=== PATIENT | male | born 1970 | race Two or more races ===

== ENCOUNTER 2025-03-15 10:28 | Emergency (ER) | payer MEDICAID, OTHER, SELFPAY ==
[2025-03-15 10:38] VITALS: BP 118/66; PULSE 68; RESP 18; TEMP 36.8; O2SAT 100; BMI 23.5
--- NOTE | 2025-03-15 12:50 | ED_ITS ---
HPI - General Adult General Chief complaint: Wound/Laceration Stated complaint: laceration Time Seen by Provider: 03/15/25 13:12 Source: patient and smoking tobacco packer hand (all interactions with this patient were facilitated with an [facility] tearoom hostess) Mode of arrival: ambulatory Limitations: language barrier (all interactions with this patient were facilitated with an [facility] tearoom hostess) History of Present Illness ED Provider: Riddhi Deleon PA-C HPI narrative: Patient is a 54 year old assigned male at with no reported medical history presenting to the emergency department today with right wrist and bicep injury. Patient states that he was using scissors when his hand slipped and cut his right wrist and slipped and abrased his right upper arm. Patient denies any dizziness, lightheadedness, abdominal pain, nausea, vomiting, fever, chills, blurry vision, double vision, loss of vision, chest pain, difficulty breathing, shortness of breath, back pain, night sweats, pain with urination, increased urinary frequency, increased urinary urgency, blood in his urine or stool, syncope or a near syncopal episode, bowel incontinence, bladder incontinence, or any other complaints at this time. Patient states that he does not know when his last tetanus shot was. Relieving factors: none Exacerbating factors: none Associated symptoms: denies other symptoms Treatments prior to arrival: none Related Data Previous Rx's ?Medication ?Instructions ?Recorded amoxicillin 875 mg-potassium 1 tab PO BID 5 days #10 tabs 03/15/25 clavulanate 125 mg tablet naproxen 500 mg tablet 500 mg PO BID 7 days #14 tabs 03/15/25 Allergies Allergy/AdvReac Type Severity Reaction Status Date / Time No Known Allergies Allergy Verified 03/15/25 10:45 Review of Systems 2 Constitutional: Constitutional: Reports no additional constitutional complaints, Denies chills, Denies fever(s) and Denies night sweats Eyes: Eyes: Reports no additional eye complaints, Denies blurry vision, Denies change in vision, Denies diplopia, Denies eye discharge, Denies loss of vision and Denies eye pain ENT: Denies dizziness Cardiovascular: Cardiovascular: Reports no additional cardiovascular complaints, Denies chest pain, Denies lightheadedness, Denies Loss of Consciousness and Denies dyspnea Respiratory: Respiratory: Reports no additional respiratory complaints and Denies dyspnea Gastrointestinal: Gastrointestinal: Reports no additional gastrointestinal complaints, Denies abdominal pain, Denies melena, Denies hematochezia, Denies change in bowel habits and Denies change in stool character Genitourinary: Genitourinary: Reports no additional male genitourinary complaints, Denies hematuria, Denies oliguria, Denies difficulty urinating, Denies dysuria, Denies urinary frequency, Denies urinary hesitancy, Denies urinary incontinence and Denies urinary urgency Musculoskeletal: Musculoskeletal: Reports no additional musculoskeletal complaints, Denies numbness and Denies tingling Comments: right wrist and right upper arm injury Neurologic: Denies dizziness, Denies loss of vision, Denies numbness and Denies tingling Psychiatric: Psychiatric: Reports no additional psychiatric complaints Endocrine: Endocrine: Reports no additional endocrine complaints Hematologic/Lymphatic: Hematologic/Lymphatic: Reports no additional hematologic/lymphatic complaints Allergic/Immunologic: Allergic/Immunologic: Reports no additional allergic/immunologic complaints PMFSH Past Medical History Attestation statement: The following information was validated with the patient. Source: old records reviewed and nursing notes reviewed Social History Social History Advance Directives: No Advance Directives Information Provided: Yes Physical Exam ED Vital Signs: Vital Signs - 24 hr 03/15/25 10:38 03/15/25 14:04 Temperature 98.3 F 98.3 F Pulse Rate 68 68 Respiratory Rate 18 18 Blood Pressure 118/66 118/66 Pulse Oximetry 100 100 Oxygen Delivery Method Room Air Room Air BMI result Body Mass Index 23.5 Const General: cooperative, no acute distress, alert and awake Nutritional Appearance: well nourished Orientation/consciousness: patient oriented x3 HENMT Head: Yes normal to inspection and Yes atraumatic Ears: hearing grossly normal bilaterally and external ears normal General nose exam: Normal external nose present, no nasal discharge noted and no epistaxis Face and sinus: Yes normal facial exam, No abrasion and No laceration Mouth: Normal oral and palatal mucosa present, no drooling and no muffled voice Eyes General: appearance normal, both eyes and all related structures Periorbital: periorbital findings normal Eyelids: Yes eyelids normal Conjunctivae: conjunctivae normal Pupils: Equal, round and reactive pupils present EOM: EOMs intact bilaterally Neck Neck: Yes normal visual inspection, Yes full ROM and Yes no lymphadenopathy Resp Effort & Inspection: normal respiratory effort and able to speak in complete sentences Neuro General: patient oriented x3, moves all extremities and CN's II-XI intact bilaterally Cranial nerves: Yes Equal, round and reactive pupils present Cognition (Neuro): normal cognition Extrem Other: General: Yes full ROM and Yes capillary refill normal Psych Appearance: grossly normal Mental Status: mental status grossly normal Affect: normal affect Attitude: cooperative Thought process: Normal thought process present Thought content: Normal thought content present Insight: Good insight present (Psych) Course Course Course Narrative: RME performed by Riddhi Deleon PA-C. Patient is a 54 year old assigned male at presenting to the emergency department with a right wrist and upper arm injury. Patient states that he was using scissors when they slipped and cut his right wrist and upper arm. Patient states that he does not know when his last tetanus shot was. Detailed physical exam and review of systems are deferred to the senior clinician. Patient placed back in the waiting room pending room availability. Medications Administered Discontinued Medications Generic Name Dose Route Start Last Admin Trade Name Freq PRN Reason Stop Dose Admin Diphtheria/Tetanus/Acell Pertussis 0.5 ml 03/15/25 12:50 03/15/25 13:08 Diphth,Pertus(Acell),Tet Adult 0.5 Ml Syringe IM 03/15/25 12:51 0.5 ml .ONCE ONE Administration Lidocaine HCl 10 ml 03/15/25 12:50 03/15/25 13:07 Lidocaine Hcl 1 % Mpf 5 Ml Vial SUBCUT 03/15/25 12:51 10 ml ONCE ONE Administration Procedures Laceration Laceration 1: Site: upper extremity Side (If applicable): right Size (cm): 3 Description: linear Depth: simple, single layer Local Anesthetic: lidocaine 1% Amount of anesthesia used (mL): 10 Pre-repair: wound explored, irrigated extensively and deep structures intact Skin layer closed with: other (Prolene) Size (cm): 6-0 Number of sutures: 5 Technique: simple, interrupted Medical Decision Making Medical Decision Making MDM Narrative: Patient is a 54 year old assigned male at with no reported medical history presenting to the emergency department today with right wrist and bicep injury. Patient's physical exam was as noted in the physical exam portion of this note. I explained my physical exam findings to the patient. I answered all questions asked by the patient. Patient's laceration was repaired, per procedure note, without incident. Patient's right hand / wrist / upper extremity PMS was intact prior to and after suture placement. Patient's right upper arm injury was more of an abrasion and was not able to be manually closed / approximated. Patient's wound was cleaned and dressed, without incident. I stressed the importance of the patient taking his medication as directed (either prescribed or as the over the counter packaging recommends). I stressed the importance of the patient following up with his primary care provider. I stressed the importance of the patient returning to the emergency department immediately if his symptoms were to worsen or if he were to develop any dizziness, shortness of breath, difficulty breathing, chest pain, blurry vision, loss of vision, nausea, vomiting, abdominal pain, fever, chills, back pain, or any other complaints. Patient verbalized agreement and understanding with this treatment plan and discharge. Differential Diagnosis Differential Diagnoses: The differential diagnosis associated with the presentation includes Right wrist laceration Right upper arm abrasion Admission/Observation Consideration of admission/observation: Escalation of care including admission/observation considered Patient would have been admitted to the hospital had his clinical presentation warranted hospital admission. Tests considered The following testing was considered but not selected: I considered obtaining an x-ray of the right wrist however, the patient's current clinical presentation and mechanism of injury did not warrant this. I discussed this with the patient who verbalized understanding and agreement. Prescription Management I considered prescription management with: Antibiotic (Given the mechanism of injury - prophylactic antibiotic is prescribed. ) Discharge Plan Discharge Clinical Impression: Laceration Patient Disposition: Home, Self-Care Instructions: Laceration (DC) Additional Instructions: Have your sutures (5) removed in 7-10 days. Do NOT soak the affected area. Do NOT go near or in public bodies of water (pools, lakes, lorenzo, etc). Take your antibiotic as prescribed. Follow up with your primary care provider. Return to the emergency department immediately if your symptoms worsen or if you develop any dizziness, shortness of breath, difficulty breathing, chest pain, blurry vision, loss of vision, nausea, vomiting, abdominal pain, fever, chills, back pain, or any other complaints. Quite las suturas (5) en 7 a 10 d?as. NO moje la edgar afectada. NO se acerque ni entre en cuerpos de agua p?blicos (piscinas, roberth, r?os, etc.). [place] el antibi?sima seg?n lo prescrito. [place]?seguimiento?con young m?dico de atenci?n primaria. Acuda inmediatamente al servicio de urgencias si hawa s?ntomas empeoran o si presenta falta de aliento, dificultad para respirar, dolor tor?cico, mareos, aturdimiento, dolor de espalda, dolor abdominal, fiebre, escalofr?os o cualquier otro s?ntoma. Please see the information below about our Patient Portal. If you are not yet enrolled in the [facility] Patient Portal, you will receive an enrollment email invitation following your visit to any [facility] setting. You may also self-enroll in the Patient Portal by visiting our website: [email or web address] The following information is required to access the Patient Portal: - Your [facility] Medical Record Number - Your personal home email address (must match what is in your electronic medical record, Registration staff can assist with this) - Name - Date of Capabilities of the Patient Portal: - Message some providers - View upcoming appointments - Access your health summary, medical history, and visit history - View current conditions and allergies - View procedure and lab results - View your medications, including guidelines, side effects, and precautions - Complete pre-appointment questionnaires requested by your provider - Ready summary reports of your office visits and procedures To access the Patient Portal Mobile Kate, follow these directions: - Search [email or web address] in the Kate Store or AddShoppers Store - Download the Kate - Search for [facility] - Enter your login/password Portal del paciente Si usted no esta inscrito en el portal de pacientes de [facility], recibira familia invitacion de inscripcion despues de young visita al [facility] o al [facility] via correo electronico. Tambien puede inscribirse voluntariamente en el portal de pacientes visitando nuestra pagina web: [email or web address] La siguiente informacion sera requerida para acceder al portal: - Young magi de historia medica de [facility] - Young direccion de correo electronico personal - Nombre - Fecha de nacimiento Capacidades: Las siguientes capacidades estan disponibles en el portal de pacientes: - Enviar mensajes a algunos doctores - Verificar proximas citas - Acceso a young historial de olga, registro medico e historial de visitas - Darline las condiciones actuales y alergias darline procedimientos y resultados del laboratorio - Darline hawa medicamentos, incluyendo las pautas - Efectos secundarios y precauciones - Completar o llenar formularios / cuestionarios de - Citas solicitadas por young doctor - Leer los resumenes de reportes medicos de hawa visitas y procedimientos Girard acceder a la aplicacion movil: - Busque [facility] en la Kate Store o AddShoppers Store - Descargue la aplicacion - Shayyque [facility] - Ingrese young nombre de usuario / Contrasena Prescriptions: New amoxicillin-pot clavulanate 875-125 mg tablet 1 tab PO BID 5 Days Qty: 10 0RF naproxen 500 mg tablet 500 mg PO BID 7 Days Qty: 14 0RF Referrals: [facility] Family Medicine [Provider Group] (Call to establish and follow up with a primary care provider. If you already have a primary care provider, please follow up with them. Llame para establecer contacto con un m?dico de cabecera y darle seguimiento. Si ya tiene un m?dico de cabecera, por favor, contacte con ?l.) [facility] Primary Care, Elsa [Provider Group] (Call to establish and follow up with a primary care provider. If you already have a primary care provider, please follow up with them. Llame para establecer contacto con un m?dico de cabecera y darle seguimiento. Si ya tiene un m?dico de cabecera, por favor, contacte con ?l.) [facility] Primary Care, Chela [Provider Group] (Call to establish and follow up with a primary care provider. If you already have a primary care provider, please follow up with them. Llame para establecer contacto con un m?dico de cabecera y darle seguimiento. Si ya tiene un m?dico de cabecera, por favor, contacte con ?l.) [facility] Primary Care, [facility] [Provider Group] (Call to establish and follow up with a primary care provider. If you already have a primary care provider, please follow up with them. Llame para establecer contacto con un m?dico de cabecera y darle seguimiento. Si ya tiene un m?dico de cabecera, por favor, contacte con ?l.) [facility] Primary Care, Payam Morrell [Provider Group] (Call to establish and follow up with a primary care provider. If you already have a primary care provider, please follow up with them. Llame para establecer contacto con un m?dico de cabecera y darle seguimiento. Si ya tiene un m?dico de cabecera, por favor, contacte con ?l.) Stand Alone Forms: Work/School Release Interventions: ED Discharge Assessment Last Done: 03/15/25 14:04 Discharge Date/Time: 03/15/25 14:04 Print Language: Luxembourgish
[2025-03-15] MEDS: Lidocaine HCl 1 % MPF 5 ML VIAL 10 ML SUBCUT (13:07)
[2025-03-15] MEDS: Diphth,Pertus(ACell),Tet Adult 0.5 ML SYRINGE IM (13:08)
[2025-03-15 14:04] VITALS: BP 118/66; PULSE 68; RESP 18; TEMP 36.8; O2SAT 100
--- OUTSIDE RECORDS SUMMARY | 2025-03-15 15:09 | XMS_ITS | Clinical Summary ---
Author Organization On License Of [facility] [employer] [facility] Address [address] [place] [address] [address] [place] [address] Care Team Providers Care Rehabilitation Aide Name Role Phone Unavailable Primary Care Provider Unavailabl e Allergies No known active allergies Medications No known medications Encounters Date Type Department Care Team Description 01/22/2025 3:00 PM EDT Office Visit [facility] [address] [place] [address] Kerri Villanueva DMD from Last 3 Months Social History Tobacco Use Types Packs/Day Years Used Date Smoking Tobacco: Never Passive Smoke Exposure: Never Smokeless Tobacco: Never Tobacco Cessation:Counseling Given: Not Answered Alcohol Use Standard Drinks/Week Comments Yes 0 (1 standard drink = 0.6 oz pur e alcohol) Sex and Gender Information Value Date Recorded Sex Assigned at Male 07/10/2023 2:20 PM EDT Legal Sex Male 2:19 PM EDT Gender Identity Male 07/10/2023 2:20 PM EDT Sexual Orientation Straight 07/10/2023 2: 20 PM EDT Last Filed Vital Signs Vital Sign Reading Time Taken Comments Blood Pressure 112/70 01/22/2025 3:28 PM EDT Pulse 68 02/11/2024 9:15 AM EDT Temperature - - Respiratory Rate - - Oxygen Saturation - - Inhaled Oxygen Concentration - - Weight - - Height - - Body Mass Index - - Plan of Treatment Upcoming Encounters Date Type Department Care Team (Late st Contact Info) Description 03/16/2025 3:00 PM EDT Office Visit [facility] [address] [place] [address] Kerri Villanueva DMD Health Maintenance Due Date Last Done Comments CT Colonography 1972 Colonoscopy 1972 Colorectal Cancer Screening 1972 Depression Screening 1972 FIT DNA/Cologuard 1972 FIT 1972 FOBT 1972 HIV Screening 1972 Lipid Panel 1972 SDOH Screening 1972 Sigmoidoscopy 1972 Disability Screening 1972 Alcohol/Substance Use Screening 1984 Family Planning (PISQ) 1987 Hepatitis C Screening 1990 DTaP/Tdap/Td Vaccines (1 - Tdap) 1991 Hepatitis B Vaccines (1 of 3 - 19+ 3-dose series) 1991 Pneumococcal Vaccine: 50+ Years (1 of 1 - PCV) 2022 Zoster Vaccines (1 of 2) 2022 COVID-19 Vaccine (1 - 2023-2 5 season) 2024 Dental X-Ray: Bitewings 02/11/2025 02/11/2024 Dental Oral Exam 03/30/2025 09/28/2024, 02/11/2024 Dental Prophylaxis 03/30/2025 09/28/2024 Influenza Vaccine (Season Ended) 2025 Tobacco Screening 09/28/2025 09/28/2024 Dental X-Ray: Full Mouth 02/11/2027 02/11/2024 RSV Patients and Patients Aged 60 years or older (1 - 1-dose 75+ series) 2047 HIB Vaccines Aged Out No longer eligi ble based on patient's age to complete this topic HPV Vaccines Aged Out No longer eligi ble based on patient's age to complete this topic Hepatitis A Vaccines Aged Out No long er eligible based on patient's age to complete this topic IPV Vaccines Aged Out No longer eligi ble based on patient's age to complete this topic Meningococcal B Vaccine Aged Out No l onger eligible based on patient's age to complete this topic Meningococcal Vaccine Aged Out No devon lea eligible based on patient's age to complete this topic RSV under 20 months Aged Out No longe r eligible based on patient's age to complete this topic Rotavirus Vaccines Aged Out No longer eligible based on patient's age to complete this topic Procedures Procedure Name Priority Date/Time Associated Diagnosis Comments CASE PRESENTATION, DETAILED AND EXTENSIVE TREATMENT PLANNING Routine 01/22/2025 3:00 PM EDT 30 MO RESIN-BASED COMPOSITE - 2 SURF, POSTERIOR Routine 01/22/2025 3:00 PM EDT PROPHYLAXIS - ADULT Routine 09/28/2024 8 :00 AM EST PERIODIC ORAL EVALUATION - ESTABLISHED PATIENT Routine 09/28/2024 8:00 AM EST INTRAORAL - COMPLETE SERIES OF RADIOGRAPHIC IMAGES Routine 02/11/2024 9:00 AM EDT from Last 3 Months or Most Recently Relevant to Health Maintenance [facility] [address] [facility] - HSN FULL (MEDICAID) [place] [id number]
== END 2025-03-15 14:04 | disposition home or self-care (01) ==
PROVIDERS: Emergency Provider Emergency Medicine Emergency Medical Services
DX: S61.511A Laceration without foreign body of right wrist, initial encounter (principal); S41.112A Laceration without foreign body of left upper arm, initial encounter; W27.2XXA Contact with scissors, initial encounter; Y93.89 Activity, other specified; Y92.9 Unspecified place or not applicable; Y99.9 Unspecified external cause status; Z23 Encounter for immunization
CPT/HCPCS: 12002; 90471; 90715; 99282; 99284; J2003

== ENCOUNTER 2025-09-09 08:31 | Outpatient (REF) | payer MEDICAID, OTHER, SELFPAY ==
[2025-09-09 11:01] LABS: Appearance Urine Clear; Glucose Urine UA Negative (Negative); PH 5.5 (5.0-9.0); Specific Gravity - Urine 1.025 (1.005-1.025)
[2025-09-09 11:04] LABS: MANUAL DIFF FLAG NO
[2025-09-09 11:13] LABS: Hematocrit 43.1 % (42.0-52.0); Hemoglobin 14.3 g/dl (14.0-18.0); Imm Gran Abs Auto 0.01 X10*3/uL (0.00-0.03); Imm Gran Pct Auto 0.2 % (0.0-0.4); Lymphocytes Absolute Auto 2.0 X10*3/uL (1.2-4.9); Mean Corpuscular HGB Conc 33.2 g/dl (31.0-36.0); Mean Corpuscular Hemoglobin 29.8 pg (27.0-33.0); Mean Corpuscular Volume 89.8 fL (80.0-98.0); NRBC Abs Auto 0.000 X10*3/uL (0.0-0.012); NRBC Pct Auto 0.0 /100WBC (0.0-0.2); Platelet Count 299 X10*3/uL (160-400); Red Blood Count 4.80 X10*6/uL (4.60-5.80); White Blood Count 5.5 X10*3/uL (4.8-10.8)
[2025-09-09 11:32] LABS: Alanine Aminotransferase 20 U/L (0-40); Albumin Level 4.6 g/dL (3.5-5.0); Alkaline Phosphatase 96 U/L (39-117); Anion Gap 10 (12-20); Aspartate Amino Transferase 27 U/L (5-37); Blood Urea Nitrogen 23 mg/dL (9-16); Calcium 9.0 mg/dL (8.4-10.2); Carbon Dioxide 25 mmol/L (22-29); Chloride 108 mmol/L (96-108); Cholesterol 202 mg/dL (<200); Estimated Glomerular Filt Rate > 60; HDL Cholesterol 64 mg/dL (>40); Potassium 4.1 mmol/L (3.3-5.1); Sodium 139 mmol/L (135-145); Total Protein 7.9 g/dL (6.5-8.0); Triglycerides 96 mg/dL (<150)
[2025-09-09 11:48] LABS: HBsAGNum1 0.40 S/CO (0.00-0.99); HIV Num 1 0.08 S/CO (0.00-0.99); Hepatitis B Surface Antigen Negative (Negative); ~HepC Num1 0.06 S/CO (0.00-0.79); ~Hepatitis C Antibody Nonreactive (Nonreactive)
[2025-09-09 11:50] LABS: PSA,Total (Free>4and<10) 0.64 ng/mL (0.00-4.00)
[2025-09-09 12:32] LABS: CT PCR Urine NOT DETECTED (Not Detect.); NG PCR Urine NOT DETECTED (Not Detect.)
== END 2025-09-09 08:32 | disposition home or self-care (01) ==
LOC: HO.HHCL 08:31
PROVIDERS: PCP Nurse Practitioner Family; Visit Provider Nurse Practitioner Family
DX: Z00.00 Encounter for general adult medical examination without abnormal findings (principal); R10.A3 Flank pain, bilateral; R33.9 Retention of urine, unspecified; Z11.59 Encounter for screening for other viral diseases; Z11.4 Encounter for screening for human immunodeficiency virus [HIV]; Z20.2 Contact with and (suspected) exposure to infections with a predominantly sexual mode of transmission
CPT/HCPCS: 80053; 80061; 81001; 83036; 84153; 85025; 86803; 87340; 87389; 87491; 87591

== ENCOUNTER 2025-09-21 14:38 | Outpatient (REF) | payer MEDICAID, OTHER, SELFPAY ==
--- OUTSIDE RECORDS SUMMARY | 2025-09-21 13:30 | XMS_ITS | Encounter Summary ---
Author Organization [employer] Address [address] [place] [address] Care Team Providers Care Reduction Plant Supervisor Name Role Phone Abelino Talaveraupe [employer]OCKSTITCH LINING [employer]KER Primary Care Provider Encounter Details Date Type Department Care Team (Late st Contact Info) Description 09/21/2025 1:30 PM EST Office Visit [facility] [address] [place], [place] [phone] Eva Talavera FNP [address] [place] [address] Numbness and tingling of left upper and lower extremity (Primary Dx) Social History Tobacco Use Types Packs/Day Years Used Date Smoking Tobacco: Former Cigarettes Passive Smoke Exposure: Past Smokeless Tobacco: Never Tobacco Cessation:Counseling Given: Not Answered Comments:Smoked cigarettes for 30 yrs smoke about 2 sticks a week Stopped 2 yrs ago Alcohol Use Standard Drinks/Week Comments Yes 0 (1 standard drink = 0.6 oz pure alcohol) 1 liter of pure alcohol every week Alcohol Answer Date Recorded Q1: How often do you have a drink containing alc ohol? 2 09/07/2025 Q2: How many drinks containi ng alcohol do you have on a typical day when you are drinking? 5 09/07/2025 Q3: How often do you have six or more drinks on one occasion? 1 09/07/2025 Depression Answer Date Recorded Patient Health Questionnaire-9 Score 8 09/07/2025 Patient Health Questionnaire-9 Score 8 09/07/2025 Last PHQ-9: Questionnaire Data Not on file 1 11/08/2024 Housing Stability Answer Date Recorded What is your housing situation today? I have allan grimes 08/30/[address] you li ve. Do you have problems with any of the following? None of the above 08/30/2025 Food Insecurity Answer Date Recorded Within the past 12 months, y ou worried that your food would run out before you got money to buy more: Never True 08/30/2025 Within the past 12 months,th e food you bought just didn't last and you didn't have enough money to get more: Never True 09/2024 Transportation Answer Date Recorded In the past 12 months, has l ack of transportation kept you from medical appts, meetings, work or from getting things needed for daily living? No 08/30/2025 Utilities Answer Date Recorded In the past 12 months, has t he electric, gas, oil or water company threatened to shut off services in your home? No 08/30/2025 Depression Answer Date Recorded Patient Health Questionnaire-2 Score 3 09/07/2025 Internet Access Answer Date Recorded Internet Access Q1 Yes 08/30/2025 Internet Access Q2 Not on file 08/30/2025 Sex and Gender Information Value Date Recorded Sex Assigned at Male 07/10/2023 2:20 PM EDT Legal Sex Male 2:19 PM EDT Gender Identity Male 07/10/2023 2:20 PM EDT Sexual Orientation Straight 07/10/2023 2: 20 PM EDT documented as of this encounter Last Filed Vital Signs Vital Sign Reading Time Taken Comments Blood Pressure 114/62 09/21/2025 1:15 PM EST Pulse 62 09/21/2025 1:15 PM EST Temperature 36.8 C (98.3 F) 09/21/2025 1:15 PM EST Respiratory Rate 16 09/21/2025 1:15 PM EST Oxygen Saturation 95% 09/21/2025 1:15 PM EST Inhaled Oxygen Concentration - - Weight 68.5 kg (151 lb 2 oz) 09/21/2025 1:15 PM EST Height 167.6 cm (5' 6 ) 09/21/2025 1:15 PM EST Body Mass Index 24.39 09/21/2025 1:15 PM EST documented in this encounter Plan of Treatment Upcoming Encounters Date Type Department Care Team (Late st Contact Info) Description 10/26/2025 9:00 AM EST Office Visit [facility] [address] [place] [address] Eva Talavera FNP [address] [place] [address] 01/20/2026 10:30 AM EDT Office Visit [facility] OPTOMETRY [address] [place] [address] Chelsi Sabillon, OD [address] [place] [address] Scheduled Orders Name Type Priority Associated Diagnoses Orde r Schedule Vitamin B12/Folate, Serum Panel Lab Routine Numbness and tingling of left upper and lower extremity Expected: 09/21/2025, Expires: 09/21/2026 documented as of this encounter Visit Diagnoses Diagnosis Numbness and tingling of left upper and lower extremity- Primary documented in this encounter Additional Health Concerns Assessment Noted Time PHQ-9 Depression Total Score: 8 09/07/20 25 1:17 PM EST documented as of this encounter Care Teams Reduction Plant Supervisor Relationship Specialty Start Date End Date Eva Talavera FNP [address] [place] [address] PCP - General Family Medicine 09/07/25 documented as of this encounter
--- OUTSIDE RECORDS SUMMARY | 2025-09-21 15:56 | XMS_ITS | Encounter Summary ---
Author Organization [employer] Address [address] [place] [address] Care Team Providers Care Rubber And Pounder Name Role Phone Eva Talavera OPTO MECHANICAL TECHNICIAN Primary Care Provider [phone] Encounter Details Date Type Department Care Team (Latest Contact Info) Description 09/21/2025 Travel Social History Tobacco Use Types Packs/Day Years Used Date Smoking Tobacco: Former Cigarettes Passive Smoke Exposure: Past Smokeless Tobacco: Never Comments:Smoked cigarettes f or 30 yrs smoke about 2 sticks a [...] PM EDT documented as of this encounter Plan of Treatment Upcoming Encounters Date Type Department Care Team (Late st Contact Info) Description 10/26/2025 9:00 AM EST Office Visit [facility] MEDICINE [address] [place] [address] Eva Talavera FNP [address] [place] [address] 01/20/2026 10:30 AM EDT Office Visit [facility] OPTOMETRY [address] [place] [address] Tarka, Chelsi, OD [address] [place] [address] documented as of this encounter Visit Diagnoses Not on filedocumented in this encounter Additional Health Concerns Assessment Noted Time PHQ-9 Depression Total Score: 8 09/07/20 1:17 PM EST documented as of this encounter Care Teams Rubber And Pounder Relationship Specialty Start Date End Date Eva Talavera FNP [address] [place] [address] PCP - General Family Medicine 09/07/25 documented as of this encounter
--- OUTSIDE RECORDS SUMMARY | 2025-09-21 15:56 | XMS_ITS | Encounter Summary ---
Author Organization [employer] Address [address] [facility] [address] [place] [address] Care Team Providers Care Coloring Machine Operator Name Role Phone Eva Talavera COSMETICIAN APPRENTICE Primary Care Provider [phone] Reason for Visit * Reason Onset Date Comments CHARTPREP 09/20/2025 Encounter Details Date Type Department Care Team (Late st Contact Info) Description 09/20/2025 Telephone [facility] MEDICINE [address] [place], [place] [phone] Eva Talavera FNP [address] [place] [address] CHARTPREP Social History Tobacco Use Types Packs/Day Years Used Date Smoking Tobacco: Former Cigarettes Passive Smoke Exposure: Never Smokeless Tobacco: Never Comments:Smoked cigarettes f or [...] PM EDT documented as of this encounter Miscellaneous Notes * Telephone Encounter - Janette Oropeza [place] - 09/20/2025 9:38 AM EST Chart Prep Labs: done Images: not applicable Referrals: 01/20/26 @ 10:30 AM Optometry appt Office: Faxed to [facility] (Physician Make Up Operator Services) [phone].GI appointment pending Vaccines due: Covid, Hep B, and Zoster Screenings: colonoscopy Overdue care gaps: Not applicable documented in this encounter Plan of Treatment Upcoming Encounters Date Type Department Care Team (Late st Contact Info) Description 10/26/2025 9:00 AM EST Office Visit [facility] MEDICINE [address] [place] [address] Eva Talavera FNP [address] [place] [address] 01/20/2026 10:30 AM EDT Office Visit [facility] OPTOMETRY [address] [place], [place] [phone] Chelsi Sabillon, OD [address] [place] [address] documented as of this encounter Visit Diagnoses Not on filedocumented in this encounter Additional Health Concerns Assessment Noted Time PHQ-9 Depression Total Score: 8 09/07/20 25 1:17 PM EST documented as of this encounter Care Teams Coloring Machine Operator Relationship Specialty Start Date End Date Eva Talavera FNP [address] [place], [place] [phone] PCP - General Family Medicine 09/07/25 documented as of this encounter
--- OUTSIDE RECORDS SUMMARY | 2025-09-21 15:56 | XMS_ITS | Clinical Summary ---
Author Organization [employer] Address [address] [facility] [address] [place] [address] Care Team Providers Care Bonbon Cream Warmer Name Role Phone Eva Talavera Primary Care Provider [phone] Allergies No known active allergies Medications Multiple Vitamin (multivitamin) tablet Take 1 tablet by mouth Once per day. 90 tablet 09/21/2025 Active Active Problems Problem Noted Date Diagnosed Date Bilateral flank pain 09/10/2025 Incomplete bladder emptying 09/10/2025 Anxiety and depression 09/10/2025 Encounters Date Type Department Care Team Description 09/21/2025 1:30 PM EST Office Visit [facility] MEDICINE [address] [place] [phone] Eva Talavera FNP Numbness and tingling of left upper and lower extremity (Primary Dx) 09/21/2025 Travel 09/20/2025 Telephone [facility] MEDICINE [address] [place] [phone] Eva Talavera FNP CHARTPREP 09/13/2025 Travel 09/10/2025 Patient Outreach [facility] MEDICINE [address] [place] [phone] Eva Talavera FNP Pre-visit Planning (Pre-visit planning - LVM ) 09/07/2025 1:00 PM EST Office Visit [facility] MEDICINE [address] [place] [phone] Eva Talavera FNP Well adult exam (Primary Dx); Bilateral flank pain; Incomplete bladder emptying; Encounter for immunization; Anxiety and depression; Alcohol use 09/07/2025 Travel 09/06/2025 Telephone [facility] WALK-IN CENTER [address] [place] [address], [place] [address] Cherelle Ware [place] 08/30/2025 Patient Outreach [facility] CHC MED & PEDS [address] [place] [address] Eva Talavera FNP Pre-visit Planning (SDOH negative, Tobacco screening negative. ) 07/23/2025 Telephone [facility] INS ENROLLMENT [address] [place] [address] Olivia Lopez MD from Last 3 Months Immunizations Immunization Administration Dates Next Due Influenza, seasonal, injectable, preservative fr ee 09/07/2025 Pneumococcal Conjugate PCV 20 09/07/2025 Family History Medical History Relation Name Comments No Known Problems Brother No Known Problems Father No Known Problems Mother No Known Problems Sister Relation Name Status Comments Brother Father Mother Sister Social History Tobacco Use Types Packs/Day Years [...] Mass Index 24.39 09/21/2025 1:15 PM EST Plan of Treatment Upcoming Encounters Date Type Department Care Team (Late st Contact Info) Description 10/26/2025 9:00 AM EST Office Visit [facility] MEDICINE [address] [place] [address] Eva Talavera FNP [address] [place] [address] 01/20/2026 10:30 AM EDT Office Visit [facility] OPTOMETRY [address] [place], [place] [phone] Chelsi Sabillon, OD [address] [place] [address] Health Maintenance Due Date Last Done Comments CT Colonography 1972 Colonoscopy 1972 Colorectal Cancer Screening 1972 FIT DNA/Cologuard 1972 FIT 1972 FOBT 1972 Sigmoidoscopy 1972 Hepatitis B Vaccines (1 of 3 - 19+ 3-dose series) 1991 Zoster Vaccines (1 of 2) 2022 Dental X-Ray: Bitewings 02/11/2025 02/11/2024 Dental Oral Exam 03/30/2025 09/28/2024, 02/11/2024 Dental Prophylaxis 03/30/2025 09/28/2024 COVID-19 Vaccine (1 - 2024-2 6 season) 2025 SDOH Screening 08/30/2026 08/30/2025 Alcohol/Substance Use Screening 09/07/2026 09/07/2025 Depression Screening 09/07/2026 09/07/2025, 09/07/2025 Disability Screening 09/07/2026 09/07/2025 Tobacco Screening 09/21/2026 09/21/2025 Dental X-Ray: Full Mouth 02/11/2027 02/11/2024 Lipid Panel 09/09/2030 09/09/2025 DTaP/Tdap/Td Vaccines (2 - T d or Tdap) 03/15/2035 03/15/2025 RSV Patients and Patients Aged 60 years or older (1 - 1-dose 75+ series) 2047 Influenza Vaccine Completed 09/07/2025 Pneumococcal Vaccine: 50+ Years Completed 09/07/2025 HIV Screening Completed 09/09/2025 Hepatitis C Screening Completed 09/09/2025 HIB Vaccines Aged Out No longer eligi [...] Procedure Name Priority Date/Time Associated Diagnosis Comments PSA, TOTAL WITH REFLEX TO PSA, FREE Routine 09/09/2025 8:36 AM EST Incomplete bladder emptying URINALYSIS, COMPLETE, WITH REFLEX TO CULTURE Routine 09/09/2025 8:36 AM EST Bilateral flank pain HEMOGLOBIN A1C Routine 09/09/2025 8:36 AM EST Well adult exam LIPID PANEL, STANDARD Routine 09/09/2025 8:36 AM EST Well adult exam HIV 1/2 ANTIGEN/ANTIBODY, FOURTH GENERATION W/RFL Routine 09/09/2025 8:36 AM EST Well adult exam CBC WITH AUTO DIFFERENTIAL Routine 09/09/2025 8:36 AM EST Well adult exam HEPATITIS C AB W/REFL TO HCV RNA, QN, PCR Routine 09/09/2025 8:36 AM EST Well adult exam HEPATITIS B SURFACE ANTIGEN, EIA Routine 09/09/2025 8:36 AM EST Well adult exam COMPREHENSIVE METABOLIC PANEL Routine 09/09/2025 8:36 AM EST Well adult exam CHLAMYDIA/TRICHOMONAS/ NEISSERIA GONORRHOEAE, PCR, URINE Routine 09/09/2025 8:36 AM EST Well adult exam PROPHYLAXIS - ADULT Routine 09/28/2024 8 :00 AM EST PERIODIC ORAL EVALUATION - ESTABLISHED PATIENT Routine 09/28/2024 8:00 AM EST INTRAORAL - COMPLETE SERIES OF RADIOGRAPHIC IMAGES Routine 02/11/2024 9:00 AM EDT from Last 3 Months or Most Recently Relevant to Health Maintenance Results * Chlamydia/N. Gonorrhoeae, PCR, Urine (09/09/2025 8:36 AM EST) CT PCR, Urine NOT DETECTED Not Detect. [facility] Comment:A not detected test result does not exclude the possibilityof infection because test results can be affected byimproper specimen collection, concurrent antibiotic therapy,or the number of organisms in the specimen which may bebelow the sensitivity of the test. As with many diagnostictests, results from the Xpert CT/NG assay should beinterpreted in conjunction with other laboratory andclinical data available to the clinician.The Xpert CT/NG assay should not be used for the evaluationof suspected sexual abuse or for other medico-legalindications. Additional testing is recommended in anycircumstance when false positive or false negative resultscould lead to adverse medical, social or psychologicalconsequences. NG PCR, Urine NOT DETECTED Not Detect. [facility] Comment:A not detected test result does not exclude the possibilityof infection because test results can be affected byimproper specimen collection, concurrent antibiotic therapy,or the number of organisms in the specimen which may bebelow the sensitivity of the test. As with many diagnostictests, results from the Xpert CT/NG assay should beinterpreted in conjunction with other laboratory andclinical data available to the clinician.The Xpert CT/NG assay should not be used for the evaluationof suspected sexual abuse or for other medico-legalindications. Additional testing is recommended in anycircumstance when false positive or false negative resultscould lead to adverse medical, social or psychologicalconsequences. Urine (Urine, Random) 09/09/2025 8:36 AM EST 09/09/2025 10:55 AM EST us Eva Talavera [facility] URINE ORDERABLES Final Res ult [facility] [address] [place] [phone] * Urinalysis, Complete, with Reflex to Culture (09/09/2025 8:36 AM EST) Color Urine Yellow [facility] Appearance Urine Clear [facility] PH 5.5 5.0 - 9.0 [facility] Glucose Urine UA Negative Negative mg/dL [facility] Urine Blood Negative Negative [facility] Specific Higbee - Urine 1.025 1.005 - 1.025 [facility] Urine Protein Negative Neg-Trace mg/dL [facility] Urine Ketones Negative Negative mg/dL [facility] Nitrite Urine Negative Negative [facility] Leukocyte Esterase Urine Negative Negative [facility] RBC Urine 0-2 0 - 2 /HPF [facility] Urine WBC 0-5 0 - 5 /HPF [facility] Urine Squamous Epithelial Cell 0-2 0 - 2 /HPF [facility] Urine Bacteria None Seen None Seen [facility] Hyaline Casts, Urine 0-2 0 - 2 /LPF [facility] Urine 09/09/2025 8:36 AM EST 09/09/2025 10:55 AM EST Narrative [facility] - 09/09/2025 11:04 AM EST Urine, Clean Catch us Eva Talavera [facility] URINE ORDERABLES Final Res ult [facility] [address] [place] [phone] * PSA, Total With Reflex to PSA, Free (09/09/2025 8:36 AM EST) PSA,Total (Free>4and<10) 0.64 0.00 - 4.00 ng/mL [facility] Comment:A Free PSA was not p erformed: The percentage of Free PSA can be used to enhance the differentiation of prostate cancer from benign prostatic disease in subjects whose PSA levels are between 4.0 and 10.0 ng/mL. For subjects whose PSA levels are below 4.0 or above 10.0 ng/mL, the risk of prostate cancer is determined on the basis of the PSA alone. Therefore the % Free PSA is recommended only for those subjects whose PSA levels are between 4.0 and 10.0 ng/mL.PSA methodology: [employer] ChemiluminescentMicroparticle Immunoassay (CMIA) 09/09/2025 8:36 AM EST 09/09/2025 11:01 AM EST Eva Talavera QA SOFTWARE TEST ENGINEER LAB BLOOD ORDERABLES Final Res ult [facility] [address] [place] [phone] * (ABNORMAL) CBC auto differential (09/09/2025 8:36 AM EST) White Blood Count 5.5 4.8 - 10.8 X10*3/uL [facility] Red Blood Count 4.80 4.60 - 5.80 X10*6/uL [facility] Hemoglobin 14.3 14.0 - 18.0 g/dl [facility] Hematocrit 43.1 42.0 - 52.0 % [facility] Mean Corpuscular Volume 89.8 80.0 - 98.0 fL [facility] Mean Corpuscular Hemoglobin 29.8 27.0 - 33.0 pg [facility] Mean Corpuscular HGB Conc 33.2 31.0 - 36.0 g/dl [facility] Red Cell Distribution Width 13.0 11.0 - 16.0 % [facility] Platelet Count 299 160 - 400 X10*3/uL [facility] Mean Platelet Volume 9.3(L) 9.4 - 12.4 fL [facility] Neutrophils Percent Auto 53.5 45 - 73 % [facility] Imm Gran Pct Auto 0.2 0.0 - 0.4 % [facility] Lymphocytes Percent Auto 36.0 20 - 40 % [facility] Monocytes Percent Auto 6.5 2 - 11 % [facility] Eosinophils Percent Auto 2.9 0 - 4 % [facility] Basophils Percent Auto 0.9 0 - 2 % [facility] NRBC Pct Auto 0.0 0.0 - 0.2 /100WBC [facility] Neutrophils Absolute Auto 3.0 2.0 - 8.3 x10*3/uL [facility] Imm Gran Abs Auto 0.01 0.00 - 0.03 X10*3/uL [facility] Lymphocytes Absolute Auto 2.0 1.2 - 4.9 X10*3/uL [facility] Monocytes Absolute Auto 0.4 0.1 - 1.2 X10*3/uL [facility] Eosinophils Absolute Auto 0.2 0.0 - 0.4 X10*3/uL [facility] Basophils Absolute Auto 0.1 0.0 - 0.2 X10*3/uL [facility] NRBC Abs Auto 0.000 0.0 - 0.012 X10*3/uL [facility] Blood Venous blood specimen / Unknown 09/09/2025 8:36 AM EST 09/09/2025 10:59 AM EST Eva Enablon [facility] BLOOD ORDERABLES Final Res ult Performing Organization Address [facility]/ZIP Co de Phone Number [facility] [address] [place] [phone] * Hepatitis C Antibody with Reflex to HCV, RNA, Quantitative, Real-Time PCR (09/09/2025 8:36 AM EST) Pathologist [facility] Hepatitis C Antibody Nonreactive Nonreactive [facility] Comment:Antibodies to HCV no t detected; does not exclude early acuteHCV infection. Blood Venous blood specimen / Unknown 09/09/2025 8:36 AM EST 09/09/2025 10:59 AM EST [employer] LAB BLOOD ORDERABLES Final Res ult Performing Organization Address [facility] Co de Phone Number [facility] [address] [place] [phone] * Hepatitis B surface antigen, EIA (09/09/2025 8:36 AM EST) Pathologist [facility] Hepatitis B Surface Ag Negative Negative [facility] Blood Venous blood specimen / Unknown 09/09/2025 8:36 AM EST 09/09/2025 10:59 AM EST [facility] LAB BLOOD ORDERABLES Final Res ult Performing Organization Address [facility] Co de Phone Number [facility] [address] [place] [address] [phone] * HIV-1/2 Antigen and Antibodies, Fourth Generation, with Reflexes (09/09/2025 8:36 AM EST) HIV AB/AG Nonreactive Nonreactive [facility] Comment:HIV-1 p24 Ag and/or HIV-1/HIV-2 Ab not detected.A test result that is nonreactive does not exclude thepossibility of exposure to or infection with HIV-1 and/orHIV-2. Nonreactive results in this assay for individualswith prior exposure to HIV-1 and/or HIV-2 may be due toantigen and antibody levels that are below the limit ofdetection of this assay.The [facility] HIV Ag/Ab Combo assay result andsupplemental assay results should be interpreted inconjunction with the patient's clinical presentation,history and other laboratory results. If the results areinconsistent with clinical evidence, additional testing issuggested to confirm the result. Blood Venous blood specimen / Unknown 09/09/2025 8:36 AM EST 09/09/2025 10:59 AM EST [facility] B[facility] ORDERABLES Final Res ult Performing Organization Address [facility]/ZIP Co de Phone Number [facility] [address] [place] [phone] * Hemoglobin A1c (09/09/2025 8:36 AM EST) Hemoglobin A1c 5.5 <6.0 % [facility] Comment:Hemoglobin A1C Refer ence Range Adults: 4.8 - 6.0 % Non diabetic: < 6.0 % Goal: < 7.0 %Additional Action Suggested: > 8.0 %Note: Hemoglobin A1c results are invalid for patients with abnormal amounts of HbF. Blood transfusions may impact the HbA1c concentration in the patient sample. Estimated Average Glucose 111 mg/dL [facility] Comment:eAG = Estimated ave rage glucose which is %A1C expressed asaverage glucose, using the formula of the W1H-BvtygflIwlbgfo Glucose study (ADAG), Diabetes Care, Vol.31,#8,Apr. 2007 Blood Venous blood specimen / Unknown 09/09/2025 8:36 AM EST 09/09/2025 10:59 AM EST us Eva Talavera [facility] BLOOD ORDERABLES Final Res ult [facility] [address] [place] [phone] * (ABNORMAL) Lipid Panel, Standard (09/09/2025 8:36 AM EST) Triglycerides 96 <150 mg/dL [facility] Comment:Desirable Triglyceri de: less than 150 mg/dLBorderline High Triglyceride 150-199 mg/dLHigh Triglyceride: 200-499 mg/dLVery High Triglyceride: greater than or equal to 5OO mg/dL Cholesterol 202(H) <200 mg/dL [facility] Comment:Desirable Cholestero l: less than 200 mg/dLBorderline High Cholesterol: 200-239 mg/dLHigh Cholesterol: greater than 239 mg/dL LDL Cholesterol Calculated 119(H) <100 mg/dL [facility] Comment:Desirable LDL: less than 100 mg/dLNear Optimal/Above Optimal LDL: 110- 129 mg/dLBorderline High LDL: 130-159 mg/dLHigh LDL: 160-189 mg/dLVery High LDL: greater than or equal to 190 mg/dL HDL Cholesterol 64 >40 mg/dL [facility] Comment:Desirable HDL: great er than 40 mg/dL Note: This HDL assay may give artificially low results in patients with liver disease. Blood Venous blood specimen / Unknown 09/09/2025 8:36 AM EST 09/09/2025 11:01 AM EST us Eva Talavera [facility] BLOOD ORDERABLES Final Res ult [facility] [address] [place] [phone] * (ABNORMAL) Comprehensive Metabolic Panel (09/09/2025 8:36 AM EST) Sodium 139 135 - 145 mmol/L [facility] Potassium 4.1 3.3 - 5.1 mmol/L [facility] Chloride 108 96 - 108 mmol/L [facility] Carbon Dioxide 25 22 - 29 mmol/L [facility] Anion Gap 10(L) 12 - 20 [facility] Urea Nitrogen (BUN) 23(H) 9 - 16 mg/dL [facility] Creatinine, Serum 0.65 0.5 - 1.4 mg/dL [facility] Estimated Glomerular Filt Rate >60 [facility] Comment:Chronic Kidney Disea se: Estimated GFR < 60 mL/min/1.45e4Nqcdgn Kidney Disease: Estimated GFR < 15 mL/min/1.73m2 Glucose 102 60 - 115 mg/dL [facility] Calcium 9.0 8.4 - 10.2 mg/dL [facility] Bilirubin, Total 0.7 0.0 - 1.0 mg/dL [facility] Aspartate Amino Transferase 27 5 - 37 U/L [facility] Alanine Aminotransferase 20 0 - 40 U/L [facility] Total Protein 7.9 6.5 - 8.0 g/dL [facility] Albumin Level 4.6 3.5 - 5.0 g/dL [facility] Alkaline Phosphatase 96 39 - 117 U/L [facility] Blood Venous blood specimen / Unknown 09/09/2025 8:36 AM EST 09/09/2025 11:01 AM EST [employer] Talavera QA SOFTWARE TEST ENGINEER LAB BLOOD ORDERABLES Final Res ult [facility] [address] [place] [phone] from Last 3 Months Insurance [place]-[facility] MEDICAID LIMITED ADULT DENTAL - HSN FULL (MEDICAID) Care Teams Bonbon Cream Warmer Relationship Specialty Start Date End Date Eva Talavera FNP [address] [place] [phone] PCP - General Family Medicine 09/07/25
[2025-09-21 17:25] LABS: Folate 12.3 ng/mL (> or = 4.0); Vitamin B12 444 pg/mL (200-900)
== END 2025-09-21 14:39 | disposition home or self-care (01) ==
LOC: HO.HHCL 14:38
PROVIDERS: PCP Nurse Practitioner Family; Visit Provider Nurse Practitioner Family
DX: R20.0 Anesthesia of skin (principal); R20.2 Paresthesia of skin
CPT/HCPCS: 36415; 82607; 82746